=== PATIENT | male | born 1990 | race Caucasian/White ===

== ENCOUNTER 2017-05-09 12:35 | Emergency (ER) | payer BC ==
[~2017-05-09] VITALS: Ht 172.7 cm; Wt 59.0 kg
[2017-05-09 12:39] VITALS: BP 132/78
[2017-05-09] MEDS ORDERED: GELATIN SPONGE,ABSORBABLE 1 SPONGE SPONGE TP ONE (13:55)
== END 2017-05-09 14:07 | disposition home or self-care (01) ==
LOC: ER 12:39
DX: S68.111A Complete traumatic metacarpophalangeal amputation of left index finger, initial encounter (principal); Z88.0 Allergy status to penicillin; W26.0XXA Contact with knife, initial encounter; Y93.89 Activity, other specified; Y92.89 Other specified places as the place of occurrence of the external cause; Y99.0 Civilian activity done for income or pay
CPT/HCPCS: 99282; A4606; A6402; A6403; Z7610